=== PATIENT | female | born 1995 | race Caucasian/White ===

== ENCOUNTER 2017-02-01 21:07 | Emergency (ER) | payer OTHER ==
[2017-02-01 21:15] VITALS: BP 120/66
[2017-02-01] MEDS ORDERED: Sulfamethox/Trimethoprim DS 800/160* TAB PO ONE (21:30)
[2017-02-01] MEDS ORDERED: Lidocaine 2% W/EPI 1:100,000* 20 ML MDV INJ ONE (21:31)
--- NOTE | 2017-02-01 21:35 | UC ---
Skin Complaint HPI - HPI Summary HPI Summary: 21 yo female squeezed a pimple on her left buttock one week ago now red/swollen painful no f/c no hx of MRSA - History of Current Complaint Chief Complaint: UCSkin Time Seen by Provider: 02/01/17 21:25 Stated Complaint: ABCESS ON BUTTOCK Hx Obtained From: Patient Hx Last Menstrual Period: now Onset/Duration: Gradual Onset, Lasting Days Timing: Constant Onset Severity: Mild Current Severity: Severe Pain Intensity: 7 Pain Scale Used: 0-10 Numeric Location: Discrete Character: Swelling, Pain, Redness Aggravating: Touch Alleviating: OTC Meds - Allergy/Home Medications Allergies/Adverse Reactions: Allergies Allergy/AdvReac Type Severity Reaction Status Date / Time No Known Allergies Allergy Unverified 02/01/17 21:16 Review of Systems Constitutional: Negative Skin: Negative Eyes: Negative ENT: Negative Respiratory: Negative Cardiovascular: Negative Gastrointestinal: Negative Genitourinary: Negative Motor: Negative Neurovascular: Negative Musculoskeletal: Negative Neurological: Negative Psychological: Negative Is Patient Immunocompromised?: No All Other Systems Reviewed And Are Negative: Yes PMH/Surg Hx/FS Hx/Imm Hx Previously Healthy: Yes - Surgical History Surgical History: None - Family History Known Family History: Positive: Hypertension - Social History Alcohol Use: Occasionally Substance Use Type: Prescribed Substance Use Comment - Amount & Last Used: Ritalin, rare use Smoking Status (MU): Former Smoker Physical Exam Triage Information Reviewed: Yes Appearance: Well-Appearing, No Pain Distress, Well-Nourished Vital Signs: Initial Vital Signs Temp 98.4 F 02/01/17 21:11 Pulse 112 02/01/17 21:11 Resp 18 02/01/17 21:11 BP 120/66 02/01/17 21:11 Pulse Ox 100 02/01/17 21:11 Vital Signs Reviewed: Yes Eyes: Positive: Conjunctiva Clear ENT: Negative: Nasal congestion, Nasal drainage, Trismus, Muffled/hoarse voice Neck exam: Normal Neck: Positive: Supple, Nontender Respiratory: Positive: Lungs clear, Normal breath sounds, No respiratory distress Cardiovascular: Positive: RRR, No Murmur Neurological: Positive: Alert Psychological Exam: Normal Skin Exam: Other - 3 cm abscess with overlying cellulitis left buttock Course/Dx - Diagnoses Provider Diagnoses: left buttock abscess with overlying cellulitis Procedures - Procedure Summary Procedure Summary: INCISION AND DRAINAGE OF LEFT BUTTOCK ABSCESS Time out sterile prep anesth with 2cc lidocaine plus epi incised with 1 blade 2 cc pus expressed no drain culture obtained steril dressing pt tolerated procedure well Discharge - Discharge Plan Condition: Improved Disposition: HOME Prescriptions: Sulfamethox/Trimethoprim DS* [Bactrim DS 800/160 TAB*] 1 tab PO BID #14 tab Patient Education Materials: Abscess (ED) Referrals: Cecilia Corona MD [Primary Care Provider] - 2 Days Additional Instructions: sitz bath 2-4 x day advil 3 pills 4x day or aleve 2 pills 2x day with food for pain recheck for worsening symtpms a culture is pending Images Front/Back of Body, Lg ([place]): 1 - abscess with overlying erthyema
--- NOTE | 2017-02-04 19:12 | ED ---
Progress - Progress Note Progress Note: CALL PATIENT. CX (+) FOR [employer]. CHANGED TO [facility]CROBID. BACTRIM RESISTANT. Course/Dx - Diagnoses Provider Diagnoses: Abscess
== END 2017-02-01 22:15 | disposition home or self-care (01) ==
LOC: UCEAST 21:07
DX: L02.31 Cutaneous abscess of buttock (principal); L03.317 Cellulitis of buttock; B95.61 Methicillin susceptible Staphylococcus aureus infection as the cause of diseases classified elsewhere; Z87.891 Personal history of nicotine dependence
CPT/HCPCS: 10060; 87070; 87077; 87186; 87205; 87640; 87641; 99202; A9270-GY; G0463

== ENCOUNTER 2017-04-17 19:38 | Emergency (ER) | payer OTHER ==
[2017-04-17 19:43] VITALS: BP 129/73
[2017-04-17] MEDS ORDERED: Lidocaine 1% MPF* 2 ML VIAL INJ ONE (20:19)
--- NOTE | 2017-04-17 20:23 | UC ---
Skin Complaint HPI - HPI Summary HPI Summary: 5 cm diameter abscess on left buttock, has been treating with warm compresses - - History of Current Complaint Chief Complaint: UCSkin Time Seen by Provider: 04/17/17 20:10 Stated Complaint: ABSCESS ON BUTT CHEEK Hx Obtained From: Patient Hx Last Menstrual Period: now ?: No Onset/Duration: Gradual Onset, Lasting Days, Still Present Timing: Constant Onset Severity: Mild Current Severity: Moderate Pain Intensity: 8 Pain Scale Used: 0-10 Numeric Location: Discrete Character: Pain, Redness Aggravating Factor(s): Touch Alleviating Factor(s): Heat Associated Signs & Symptoms: Positive: Tenderness - Allergy/Home Medications Allergies/Adverse Reactions: Allergies Allergy/AdvReac Type Severity Reaction Status Date / Time No Known Allergies Allergy Unverified 04/17/17 19:44 Home Medications: Home Medications Control Pill ? Name 1 tab PO DAILY 04/17/17 [History] Review of Systems Constitutional: Negative Skin: Other - abscess right buttock Eyes: Negative ENT: Negative Respiratory: Negative Cardiovascular: Negative Gastrointestinal: Negative Genitourinary: Negative Motor: Negative Neurovascular: Negative Musculoskeletal: Negative Neurological: Negative Psychological: Negative Is Patient Immunocompromised?: No All Other Systems Reviewed And Are Negative: Yes PMH/Surg Hx/FS Hx/Imm Hx Previously Healthy: Yes - Surgical History Surgical History: None - Family History Known Family History: Positive: Hypertension - Social History Occupation: Student Lives: With Family Alcohol Use: None Substance Use Type: None Substance Use Comment - Amount & Last Used: Ritalin, rare use Smoking Status (MU): Former Smoker Physical Exam Triage Information Reviewed: Yes Appearance: Well-Appearing, No Pain Distress, Well-Nourished Vital Signs: Initial Vital Signs Temp 97.4 F 04/17/17 19:41 Pulse 104 04/17/17 19:41 Resp 12 04/17/17 19:41 BP 129/73 04/17/17 19:41 Pulse Ox 100 04/17/17 19:41 Vital Signs Reviewed: Yes Eye Exam: Normal Eyes: Positive: Conjunctiva Clear ENT Exam: Normal ENT: Positive: Normal ENT inspection, Hearing grossly normal. Negative: Trismus , Hoarse voice, Sinus tenderness Dental Exam: Normal Neck exam: Normal Neck: Positive: Supple, Nontender Respiratory Exam: Normal Respiratory: Positive: Chest non-tender, No respiratory distress, No accessory muscle use Cardiovascular Exam: Normal Cardiovascular: Positive: RRR, Pulses Normal, Brisk Capillary Refill Musculoskeletal Exam: Normal Musculoskeletal: Positive: Strength Intact, ROM Intact, No Edema Neurological Exam: Normal Neurological: Positive: Alert Psychological Exam: Normal Psychological: Positive: Normal Response To Family Skin Exam: Other Skin: Positive: Other - 5 cm erythema abscess left buttockwith small purulent center Re-Evaluation - Re-Evaluation First Eval Change: Improved - wash 3 times with betadine infiltrated with 1/2 cc of 1% Lidocaine 1/2 cm insision made about 5 cc of purulent drainage dressing applied , patient tolerated well Course/Dx - Course Course Of Treatment: warm compress keflex, diflucan, follow with pcp or general surgeon tylenol, ibuprofen for pain - Diagnoses Provider Diagnoses: I&D abscess Left Buttock Discharge - Discharge Plan Condition: Stable Disposition: HOME Prescriptions: Cephalexin CAP* [Keflex CAP*] 500 mg PO QID #28 cap Fluconazole 150 MG (NF) [Diflucan 150 mg (NF)] 150 mg PO ONCE #2 tab Patient Education Materials: Abscess (ED), Incision and Drainage (ED), Warm Compress or Soak (ED) Referrals: Cecilia Corona MD [Primary Care Provider] - Olman Zamora MD [Medical Doctor] - If Needed
== END 2017-04-17 20:48 | disposition home or self-care (01) ==
LOC: UCEAST 19:38
DX: L02.31 Cutaneous abscess of buttock (principal); Z87.891 Personal history of nicotine dependence
CPT/HCPCS: 10060; 99212; G0463